=== PATIENT | female | born 1940 ===

== ENCOUNTER 2017-08-15 14:42 | Emergency (ER) | payer MEDICARE, MEDICAID ==
[2017-08-15 15:13] VITALS: RESP 18; TEMP 99; O2SAT 98
[2017-08-15 16:18] LABS: BASO % 0.8 % (0.0-2.0); EOS % 0.6 % (0.0-4.0); LYMPH # 2.3 K/uL (1.0-4.3); LYMPH % 48.6 % (20.0-40.0); MEAN CELL VOLUME 81.3 fl (81.0-99.0); MEAN PLATELET VOLUME 8.3 fl (7.2-11.7); MONO # 0.7 K/uL (0.0-0.8); MONO % 14.7 % (0.0-10.0); NEUT # 1.6 K/uL (1.8-7.0); NEUT % 35.3 % (50.0-75.0); NRBC % 0.3 % (0.0-0.0); RBC 4.61 Mil/uL (3.80-5.20); RED CELL DISTRIBUTION WIDTH 14.4 % (11.5-14.5); WHITE BLOOD COUNT 4.6 K/uL (4.8-10.8)
--- NOTE | 2017-08-15 16:18 | ED PDOC ---
HPI: General Adult Time Seen by Provider: 08/15/17 15:47 Chief Complaint (Nursing): Fever Chief Complaint (Provider): fever, cough History Per: Patient, Public Weigher (#[id number]) Current Symptoms Are (Timing): Still Present Additional Complaint(s): 77yo female c/o cough and fever now ongoing 3 days. Denies SOB, headache, sore throat, malaise, abd pain or vomiting/diarrhea. Past Medical History Reviewed: Historical Data, Nursing Documentation, Vital Signs Vital Signs: Last Vital Signs Temp 99 F 08/15/17 15:11 Pulse 90 08/15/17 19:43 Resp 18 08/15/17 15:11 BP 145/82 08/15/17 19:43 Pulse Ox 98 08/15/17 17:18 - Medical History PMH: Anxiety, Arthritis, HTN, Hyperlipidemia - Surgical History Surgical History: No Surg Hx - Family History Family History: States: Unknown Family Hx - Living Arrangements Living Arrangements: Other - Social History Current smoker - smoking cessation education provided: No - Immunization History Hx Tetanus Toxoid Vaccination: No Hx Influenza Vaccination: Yes Hx Pneumococcal Vaccination: No - Home Medications Home Medications: Ambulatory Orders Medication Instructions Recorded Etanercept [Enbrel] 50 mg SQ DAILY 03/19/16 Lidocaine 5% [Lidoderm] 1 patch TP DAILY 03/19/16 Multivit,Iron,Min 5/Folic Acid 1 tab PO DAILY 03/19/16 [Strovite Forte] Nabumetone [Relafen] 500 mg PO BID 03/19/16 Tipton-3 Fatty Acids [Tipton-3] 1,000 mg PO DAILY 03/19/16 Paroxetine HCl [Paxil] 20 mg PO DAILY 03/19/16 Pravastatin Sodium [Pravachol] 40 mg PO DAILY 03/19/16 Valsartan [Diovan] 80 mg PO DAILY 03/19/16 ALPRAZolam [Xanax] 0.25 mg PO BID PRN #8 tab 07/17/16 PARoxetine [Paxil] 20 mg PO DAILY 07/17/16 Azithromycin 1 tab PO DAILY #6 tab 07/03/17 Loratadine/Pseudoephedrine 1 each PO DAILY #5 tab.er.24h 07/03/17 [Claritin-D 24 Hour Tablet] Ibuprofen [Motrin Tab] 600 mg PO Q6 PRN #15 tab 08/15/17 - Allergies Allergies/Adverse Reactions: Allergies Allergy/AdvReac Type Severity Reaction Status Date / Time No Known Allergies Allergy Verified 07/03/17 10:30 Review of Systems ROS Statement: Except As Marked, All Systems Reviewed And Found Negative Constitutional: Positive for: Fever, Chills. Negative for: Weakness, Malaise ENT: Negative for: Throat Pain Cardiovascular: Negative for: Chest Pain, Palpitations Respiratory: Positive for: Cough. Negative for: Shortness of Breath Gastrointestinal: Negative for: Nausea, Vomiting, Abdominal Pain Genitourinary Female: Negative for: Dysuria Musculoskeletal: Negative for: Neck Pain Skin: Negative for: Rash, Lesions, Jaundice Neurological: Negative for: Weakness, Numbness Psych: Negative for: Anxiety Physical Exam - Reviewed Nursing Documentation Reviewed: Yes Vital Signs Reviewed: Yes - Physical Exam Appears: Positive for: Well, Non-toxic, No Acute Distress Head Exam: Positive for: ATRAUMATIC, NORMAL INSPECTION, NORMOCEPHALIC Skin: Positive for: Normal Color, Warm, DRY Eye Exam: Positive for: EOMI, Normal appearance, PERRL ENT: Positive for: Normal ENT Inspection Neck: Positive for: Normal, Painless ROM Cardiovascular/Chest: Positive for: Regular Rate, Rhythm Respiratory: Positive for: CNT, Normal Breath Sounds Gastrointestinal/Abdominal: Positive for: Normal Exam, Bowel Sounds, Soft Back: Positive for: Normal Inspection Extremity: Positive for: Normal ROM Neurologic/Psych: Positive for: Alert, Oriented - Laboratory Results Result Diagrams: 08/15/17 16:13 08/15/17 16:13 - ECG O2 Sat by Pulse Oximetry: 98 Medical Decision Making Medical Decision Making: labs reviewed, mild elev BUN Flu neg Accession No. : [id number] Patient Name / ID : [id number] [id number] / [id number] Exam Date : 08/15/2017 16:14:21 ( Approved ) Study Comment : Sex / Age : F / 77Y Creator : Rob Naranjo MD Dictator : Rob Naranjo MD Stonemason Helper : Director Of Sustainability Programs : Rob Naranjo MD Approver2 : Report Date : 08/15/2017 17:06:12 My Comment : HISTORY: cough COMPARISON: No prior. TECHNIQUE: Chest PA and lateral FINDINGS: LUNGS: No active pulmonary disease. Linear scarring right lower PLEURA: No significant pleural effusion identified. No pneumothorax apparent. CARDIOVASCULAR: Lobe No radiographic findings to suggest acute or significant cardiovascular disease. OSSEOUS STRUCTURES: No significant abnormalities. VISUALIZED UPPER ABDOMEN: Normal. OTHER FINDINGS: None. IMPRESSION: No active disease. -0-------- patient already on tamiflu no evidence of respiratory compromise or complications to flu while in ED labs reviewed, mild leukopenia, flu swab here neg although given clinical symptoms, suspicious of flu Disposition - Clinical Impression Clinical Impression: Influenza-like illness, Cough - Patient ED Disposition Is Patient to be Admitted: No Counseled Patient/Family Regarding: Studies Performed, Diagnosis, Need For Followup, Rx Given - Disposition Referrals: Carla Rivers MD [Primary Care Provider] - Disposition: Routine/Home Disposition Time: 19:30 Condition: STABLE Additional Instructions: Take medications as directed. Return to ER for any worse or new symptoms. Complete course of azithromycin and tamiflu as prior prescribed. Prescriptions: Ibuprofen [Motrin Tab] 600 mg PO Q6 PRN #15 tab PRN Reason: Pain, Moderate (4-7) Instructions: Acute Bronchitis (ED) Forms: [facility] (Italian) Print Language: AMHARIC
[2017-08-15 16:50] LABS: ALT/SGPT 36 U/L (9-52); AST/SGOT 46 U/L (14-36); BLOOD UREA NITROGEN 18 mg/dl (7-17); CALCIUM 9.5 mg/dL (8.4-10.2); GFR AFRICAN-AMERICAN > 60; GFR NON-AFRICAN AMERICAN > 60
[2017-08-15 17:00] LABS: B-TYPE NATRIURETIC PEPTIDE 73.8 pg/ml (0-900)
--- NOTE | 2017-08-15 17:07 | RAD ---
HISTORY: cough COMPARISON: No prior. TECHNIQUE: Chest PA and lateral FINDINGS: LUNGS: No active pulmonary disease. Linear scarring right lower PLEURA: No significant pleural effusion identified. No pneumothorax apparent. CARDIOVASCULAR: Lobe No radiographic findings to suggest acute or significant cardiovascular disease. OSSEOUS STRUCTURES: No significant abnormalities. VISUALIZED UPPER ABDOMEN: Normal. OTHER FINDINGS: None. IMPRESSION: No active disease.
[2017-08-15 19:45] VITALS: BP 145/82; PULSE 90
--- NOTE | 2017-08-16 10:06 | CARD ---
APPROVED REPORT EKG Measurement Heart [id number] ID [id number] <Conclusion> Normal sinus rhythm Possible Left atrial enlargement Borderline ECG
== END 2017-08-15 19:00 | disposition home or self-care (01) ==
LOC: SUPCPDRO 14:42 → H.ER 14:42
DX: J11.1 Influenza due to unidentified influenza virus with other respiratory manifestations (principal); E78.5 Hyperlipidemia, unspecified; F41.9 Anxiety disorder, unspecified; I10 Essential (primary) hypertension